=== PATIENT | male | born 1960 | race Caucasian/White ===

== ENCOUNTER 2017-03-22 10:04 | Emergency (ER) | payer MEDICARE, OTHER ==
--- NOTE | ~2017-03-22 | EKG ---
PATIENT: UNA KENNEDY UNIT #: [id number] Ventricular Rate: 62 BPM Atrial Rate: 62 BPM P-R Interval: 210 ms QRS Duration: 156 ms Q-T Interval: 456 ms QTC Calculation(Bezet): 462 ms P [place]: 84 degrees Calculated R [place]: 93 degrees Calculated T [place]: 118 degrees Diagnosis Line: Sinus rhythm with 1st degree A-V block Diagnosis Line: Rightward axis Diagnosis Line: Left bundle branch block with repolarization Diagnosis Line: abnormality Diagnosis Line: Abnormal ECG Diagnosis Line: No previous ECGs available Diagnosis Line: Confirmed by SHUN REEDER MD ([id number]) on 03/22/2017 Diagnosis Line: 4:13:02 PM INTERPRETING MD: VARINDER ARCHULETA
--- NOTE | ~2017-03-22 | CR72 ---
[facility] A Service of [facility] & [facility] RADIOLOGY TEXT RESULTS PATIENT: UNA KENNEDY LOCATION: [facility] : 62 UNIT #: [id number] AGE: [address]: Tawnya Rasheed MD SEX: M ORDER DR: [id number] [facility] [address] [place], [place] [address] [id number] MR#: [id number] Acc #: [id number] NAME: UNA KENNEDY : 1960 SEX: M STUDY DATE/TIME: 03/22/2017 9:32 UNIT: [facility] ROOM: STUDY DESCRIPTION: CR Chest Single View Portable Attending Physician: Tawnya Rasheed M.D. Ordering Physician: Tawnya Rasheed M.D. MEDICAL IMAGING REPORT This report is preliminary unless electronic signature is present EXAM portable chest 03/22/2017 HISTORY Chest pain beginning today. COMPARISON None. FINDINGS Frontal chest demonstrates clear lungs. No pleural effusion or pneumothorax. Mild cardiomegaly. Mediastinum and pulmonary vasculature unremarkable. Median sternotomy wires. IMPRESSION Mild cardiomegaly. CABG. No other acute chest findings. Dictated by... Sherman Bailey M.D. THIS IS AN ELECTRONICALLY VERIFIED REPORT Sherman Bailey M.D. at 03/23/2017 4:45 PM Mendy TD: 03/22/2017 10:58 JOB #: [id number] MEDICAL IMAGING REPORT Page 1 of 1 COPY
[2017-03-22 09:52] LABS: URINE SOURCE CLEAN CATCH
[2017-03-22 09:57] LABS: BASOPHIL# 0.1 X10e3 (0-0.3); BASOPHIL% 2.1 % (0-2.5); EOSINOPHIL# 0.2 X10e3 (0-0.7); EOSINOPHIL% 4.2 % (0.0-7.0); HEMATOCRIT 39.3 % (38.0-50.0); HEMOGLOBIN 12.7 gm/dL (13.0-16.0); LYMPHOCYTE# 1.4 X10e3 (1.0-3.5); LYMPHOCYTE% 26.2 % (17.0-45.0); MEAN CELL VOLUME 89.5 FL (83-96); MEAN CORPUSCULAR HEMOGLOBIN 28.9 PG (28-34); MEAN CORPUSCULAR HGB CONC 32.3 g/dL (30-36); MEAN PLATELET VOLUME 7.6 FL (6.5-11.5); MONOCYTE# 0.5 X10e3 (0-1.0); MONOCYTE% 9.2 % (3.0-12.0); NEUTROPHIL# 3.2 X10e3 (1.5-7.1); NEUTROPHIL% 58.3 % (40-75); PLATELET COUNT 161 X10e3 (140-420); RED BLOOD COUNT 4.39 X10e (3.90-5.60); RED CELL DISTRIBUTION WIDTH 14.9 % (11.0-15.5); WHITE BLOOD COUNT 5.5 X10e3 (4.0-10.5)
[2017-03-22 09:58] LABS: URINE APPEARANCE CLEAR; URINE BILIRUBIN NEG (NEG); URINE BLOOD NEG (NEG); URINE COLOR YELLOW; URINE GLUCOSE NEG (NEG); URINE KETONE NEG (NEG); URINE LEUKOCYTE ESTERASE NEG (NEG); URINE NITRATE NEG (NEG); URINE PROTEIN NEG (NEG); URINE SPECIFIC GRAVITY 1.009 (1.003-1.035); URINE UROBILINOGEN 0.2 MG/DL (NEG)
[2017-03-22 09:59] LABS: DIFF IND NO
[2017-03-22 10:11] LABS: INR 2.2; PARTIAL THROMBOPLASTIN TIME 38.5 SECONDS (23.5-31.3); PROTHROMBIN TIME (PATIENT) 24.1 SECONDS (9.6-11.5)
[2017-03-22 10:13] LABS: CULTURE INDICATED? NO
[2017-03-22 10:22] LABS: ALBUMIN SERUM 4.3 g/dL (3.5-5.0); AMPHETAMINE NEG (NEG); BARBITURATES NEG (NEG); BENZODIAZEPINES NEG (NEG); BILIRUBIN, DIRECT 0.1 mg/dL (0.0-0.2); BILIRUBIN,INDIRECT 0.6 mg/dL (0.0-0.9); BILIRUBIN,TOTAL 0.7 mg/dL (0.2-2.0); BUN/CREATININE RATIO 12.3; CALCIUM SERUM 8.8 mg/dL (8.4-10.2); COCAINE NEG (NEG); CREATININE SERUM 1.3 mg/dL (0.6-1.4); GLOM FILT RATE Estimated 61.4 mL/min (>60); MARIJUANA NEG (NEG); OPIATES NEG (NEG); POTASSIUM 4.2 mmol/L (3.5-5.1); PROTEIN TOTAL SERUM 7.3 g/dL (6.0-8.3); TRICYCLIC ANTIDEPRESSANTS NEG (NEG); U METHADONE NEG (NEG)
[2017-03-22 10:31] LABS: AMYLASE 30 U/L (0-46); LIPASE 49 U/L (22-51)
[2017-03-22 10:58] LABS: POC - CKMB 1.5 ng/mL (0.0-7.9); POC - TROPONIN <0.05 ng/mL (<=0.05)
[2017-03-22 11:48] LABS: POC - CKMB 1.8 ng/mL (0.0-7.9); POC - TROPONIN <0.05 ng/mL (<=0.05)
== END 2017-03-22 12:12 | disposition home or self-care (01) ==
LOC: CED 10:04
PROVIDERS: Student in an Organized Health Care Education/Training Program
DX: R10.13 Epigastric pain (principal); F10.129 Alcohol abuse with intoxication, unspecified; F41.9 Anxiety disorder, unspecified; I10 Essential (primary) hypertension
CPT/HCPCS: 36415; 71010; 80048; 80076; 80307; 81003; 82150; 82553; 83690; 83880; 84484; 85025; 85610; 85730; 93005; 96374; 96375; 99284; C9113; G0480; J2405

== ENCOUNTER → 2017-07-31 | Outpatient (CLI) | payer MEDICARE, OTHER ==
--- NOTE | ~2017-07-31 | MR2 ---
[facility] A Service of [facility] & [facility] RADIOLOGY TEXT RESULTS PATIENT: UNA KENNEDY LOCATION: [facility] : 62 UNIT #: [id number] AGE: [address]: ALICE WHITE MD SEX: M ORDER DR: [id number] [address] [address] [id number] MR#: [id number] Acc #: [id number] NAME: UNA KENNEDY : 1960 SEX: M STUDY DATE/TIME: 07/31/2017 8:57 UNIT: [facility] ROOM: STUDY DESCRIPTION: MR Abdomen WWo Cont Attending Physician: Alice White M.D. Referring Physician: Alice White M.D. Ordering Physician: Bethany White M.D. Primary Care Physician: Alice White M.D. MRI CENTER REPORT This report is preliminary unless electronic signature is present. EXAM MRI abdomen without and with contrast DATE 07/31/2017 HISTORY Follow up abnormal CT at [facility]. Patient complains of back pain [id number] back for about [address] abdomen and pelvis without contrast performed at [facility], 06/21/2017, with indeterminate liver, spleen lesions. PROCEDURE Multiplanar, multisequence imaging was obtained of the abdomen without and with contrast. 19 mL MultiHance was administered intravenously for the exam. FINDINGS Liver size is mildly enlarged up to 19.6 cm craniocaudally. Spleen size measures within normal limits on today's exam, 13.7 cm. The liver does not appear cirrhotic, and there is no evidence of iron deposition. No suspicious enhancing liver lesions are identified. Incidental note is made of a 1.6 cm hemangioma in the left hepatic lobe measuring 1.6 cm (segment 3). No suspicious enhancing liver lesions with washout characteristics are identified. Tiny focus of fat deposition near the falciform ligament is thought to correspond to the previous CT. The liver does not appear grossly steatotic. Pancreas, adrenals, and kidneys are within normal limits. Imaged bowel is within normal limits. No adenopathy. No free fluid. Gallbladder has a normal appearance, no abnormal biliary ductal dilatation or pancreatic STS. [facility] A Service of [facility] & [facility] RADIOLOGY TEXT RESULTS PATIENT: UNA KENNEDY LOCATION: [facility] #: [id number] : 62 UNIT #: [id number] AGE: [address]: ALICE WHITE MD SEX: M ORDER DR: ductal dilatation is seen. IMPRESSION 1. Small focal fat deposition in the left hepatic lobe near the gallbladder fossa is thought to correspond to the liver abnormality described on previous CT. 2. 1.6 cm benign hemangioma within the left hepatic lobe. 3. 1.4 cm benign hemangioma within the spleen. 4. Mild hepatic enlargement. 1. Dictated by... Zuleima Miller M.D. THIS IS AN ELECTRONICALLY VERIFIED REPORT Zuleima Miller M.D. at 08/03/2017 8:49 AM SONALI/donna TD: 07/31/2017 23:02 JOB #: [id number] MRI CENTER REPORT Page 1 of 1
== END | disposition home or self-care (01) ==
LOC: SMRI 07-10 10:15
DX: R93.5 Abnormal findings on diagnostic imaging of other abdominal regions, including retroperitoneum (principal); R16.0 Hepatomegaly, not elsewhere classified; D18.03 Hemangioma of intra-abdominal structures; R93.2 Abnormal findings on diagnostic imaging of liver and biliary tract
CPT/HCPCS: 74183; A9581